=== PATIENT | female | born 1955 | race Hispanic/Latino ===

== ENCOUNTER 2017-03-26 09:34 | Outpatient (CLI) | payer BC, OTHER | END 2017-03-26 09:35 | disposition home or self-care (01) | LOC: LABHHL 09:34 | PROVIDERS: ATTEND Surgery | DX: N63 Unspecified lump in breast (principal) | CPT/HCPCS: 88305 ==

== ENCOUNTER 2017-04-30 13:53 | Outpatient (CLI) | payer BC ==
--- NOTE | 2017-05-04 11:04 | Magnetic Resonance Report ---
BILATERAL BREAST MRI WITHOUT AND WITH CONTRAST: 04/30/17 13:53:00 CLINICAL: Status post benign left stereotactic breast biopsy 03/25/17. The biopsy was performed for a mammographic asymmetry. COMPARISON:01/18/17 bilateral screening mammogram and 03/25/17 and 02/23/17 left mammograms.. TECHNIQUE: Axial 1.0-mm T1 without, axial high resolution 2.0-mm T2 and axial 1.0-mm dynamic Vibrant high-resolution postcontrast T1 fat saturation sequences on a 1.5 Umm magnet. The examination was performed with an 8 channel dedicated [place] breast coil. Post processing with CAD and subtraction was performed on an [employer] workstation. 20 cc of Multihance was injected without incident for the contrast portion of the exam. Consent was obtained prior to the administration of the contrast. FINDINGS: Right: Minimal background parenchymal enhancement. No mass or suspicious enhancement. A benign 4 mm lower inner intraparenchymal lymph node. No suspicious right axillary or right internal mammary lymph nodes. Left: Minimal background parenchymal enhancement. No mass or suspicious enhancement.. A post biopsy seroma 9 o'clock measures 1.8 x 1.4 cm. No suspicious left axillary or left internal mammary lymph nodes. IMPRESSION: Negative study with benign post biopsy changes in the left breast. BI-RADS 2 - - Benign
== END 2017-04-30 13:54 | disposition home or self-care (01) ==
LOC: SPVIMAG 13:53
PROVIDERS: ATTEND Surgery
DX: R92.2 Inconclusive mammogram (principal)
CPT/HCPCS: 0159T; A9577; C8908; 77059

== ENCOUNTER 2021-02-18 11:44 | Outpatient (CLI) | payer MEDICARE, OTHER ==
--- NOTE | 2021-02-18 14:36 | Mammography Report ---
BILATERAL DIGITAL SCREENING MAMMOGRAM WITH CAD WITH TOMOSYNTHESIS HISTORY: Screening mammogram. TECHNIQUE: Routine digital mammographic imaging performed. This examination was interpreted with th brandi benefit of Computer-aided Detection analysis. Tomosynthesis were acquired and reviewed COMPARISON: 02/15/2020, 03/16/2019, 01/31/2018. FINDINGS: Breast Density: heterogeneously dense breast parenchymal pattern which somewhat lessens the sensitivi ty of the evaluation. Digital CC and MLO views demonstrate no mammographic evidence of malignancy. Multiple biopsy markers in both breasts are again noted. IMPRESSION: No mammographic evidence of malignancy. If the clinical examination remains stable, recommend bilate ral mammogram in approximately one year. BIRADS 1: Negative. FURTHER INFORMATION: According to the [employer], yearly mammograms are recommend ed starting at age 40 and continuing as long as a woman is in good health. Clinical Breast Exams shou ld be part of a periodic health exam-about every 3 years for women in their 20s and 30s and every yea r for women 40 and over. Breast self exam is an option for women starting in their 20s. Any breast ch eze noted on a breast self exam should be reported promptly to the patient's healthcare provider. Br east MRI is recommended for women with an approximately 20-25% or greater lifetime risk of breast can cer, including women with a strong family history of breast or ovarian cancer and women who have been treated for Hodgkin's disease. A negative Mammography report should not discourage follow up or biopsy of a clinically significant f inding and/or abnormality. Dense breast tissue may obscure small neoplasms. The patient will be entered into a reminder system with a target due date for the next screening mamm ogram. Signer Name: Som Ford MD Signed: 02/18/2021 2:31 PM Workstation Name: [id number]
== END 2021-02-18 11:45 | disposition home or self-care (01) ==
LOC: SPVWC 11:44
PROVIDERS: ATTEND Surgery
DX: Z12.31 Encounter for screening mammogram for malignant neoplasm of breast (principal); N64.89 Other specified disorders of breast
CPT/HCPCS: 77063; 77067